=== PATIENT | female | born 1990 | race African-American/Black ===

== ENCOUNTER 2022-04-03 08:32 | Emergency (ER) | payer SELFPAY ==
[2022-04-03] MEDS ORDERED: Ketorolac Tromethamine 30 MG/ML VIAL ONE (09:54)
== END 2022-04-03 10:08 | disposition home or self-care (01) ==
LOC: ERS 08:32
DX: R51.9 Headache, unspecified (principal); F17.210 Nicotine dependence, cigarettes, uncomplicated
CPT/HCPCS: 96372; 99283; J1885

== ENCOUNTER 2023-06-24 11:06 | Emergency (ER) | payer SELFPAY ==
[2023-06-24] MEDS ORDERED: Acetaminophen 500 MG TAB ONE (12:45)
== END 2023-06-24 13:46 | disposition home or self-care (01) ==
LOC: ERS 11:06
DX: J18.9 Pneumonia, unspecified organism (principal); R51.9 Headache, unspecified
CPT/HCPCS: 71045

== ENCOUNTER 2023-08-02 10:05 | Emergency (ER) | payer MEDICAID, SELFPAY ==
[2023-08-02] MEDS ORDERED: Acetaminophen 500 MG TAB ONE (10:23)
[2023-08-02 10:45] LABS: #Monocytes 0.9 thou/uL (0.11-0.59); %Basophils 0.2 % (0.0-1.0); %Lymphocytes 7.3 % (21.0-51.0); %Monocytes 4.7 % (0.0-10.0); %Neutrophils 87.1 % (42.0-75.0); Hemoglobin 11.9 g/dL (12.0-16.0); Mean Corpuscular HGB CONC 31.3 g/dL (32.0-36.0); Mean Corpuscular Hemoglobin 21.2 pg (27.0-31.0); Mean Corpuscular Volume 67.6 fl (78.0-98.0); Mean Platelet Volume 9.6 fL (7.4-10.4); Platelet Count 303 10x3/uL (130-400); Red Blood Cell (RBC) Count 5.62 mill/uL (4.20-5.40); White Blood Cell (WBC) Count 18.3 10x3/uL (4.8-10.8)
[2023-08-02] MEDS ORDERED: Dexamethasone 10 MG/ML VIAL ONE (10:46)
[2023-08-02] MEDS ORDERED: Clindamycin/D5W 900 MG in Premix 1 BAG IVPB SCH (11:00)
[2023-08-02 11:01] LABS: Anion Gap 13 mmol/L (10-20); BUN (Urea Nitrogen) 9 mg/dL (7.0-18.7); CRP (Inflammatory) 9.05 mg/dL (= or < 0.5); Calc. Creatinine Clearance 0 mL/min (70-130); Calcium 9.7 mg/dL (7.8-10.44); Carbon Dioxide 23 mmol/L (22-29); Chloride 105 mmol/L (98-107); Estimated GFR 99; Glucose 117 mg/dL (70-105); Potassium 3.8 mmol/L (3.5-5.1); Sodium 137 mmol/L (136-145)
[2023-08-02 11:03] LABS: BHCG - Serum Negative (NEGATIVE); Pregs Control Background? CLEAR/WHITE (CLR/WHITE); Pregs Control Bar Appear? YES (CONTROL BAR)
[2023-08-02 11:28] LABS: CellaVision Operator ID LAB.NR; Elliptocytes SLIGHT = 2-5 cells HPF (0-1); Hypochromia SLIGHT = 6-15 cells HPF (0-5); Microcytosis MODERATE=15-30 cells HPF (0-5); Platelet Adequacy Comment Platelets Normal; Polychromasia SLIGHT = 2-3 cells HPF (0-2); Target Cells SLIGHT = 2-5 cells HPF (0-1); Vacuoles SLIGHT
[2023-08-02 12:11] LABS: SARS-CoV-2 NAA Rapid Test Not Detected (NotDetected)
[2023-08-02] MEDS ORDERED: Iopamidol-370 76% 500 ML MDV (1 ML CHARGE) ONE (15:57)
== END 2023-08-02 12:45 | disposition home or self-care (01) ==
LOC: ERS 10:05
DX: J39.1 Other abscess of pharynx (principal)
CPT/HCPCS: 36415; 70491; 83605; 84703; 85025; 86140; 96361; 96365; 96375; J1100; J3490; Q9967

== ENCOUNTER 2023-12-13 01:08 | Emergency (ER) | payer OTHER ==
[2023-12-13] MEDS ORDERED: fentaNYL 50 mcg/mL 1 mL Vial ONE ×3 (01:14→04:05)
[2023-12-13 01:35] LABS: Hematocrit 37.6 % (36.0-47.0); Hemoglobin 11.3 g/dL (12.0-16.0); Mean Corpuscular HGB CONC 30.1 g/dL (32.0-36.0); Mean Corpuscular Hemoglobin 20.8 pg (27.0-31.0); Mean Corpuscular Volume 69.1 fL (78.0-98.0); Platelet Count 332 10x3/uL (130-400); RBC Distribution Width 19.4 % (11.5-14.5); Red Blood Cell (RBC) Count 5.44 mill/uL (4.20-5.40)
[2023-12-13 01:47] LABS: ALT (SGPT) 6 U/L (8-55); AST (SGOT) 24 U/L (5-34); Alkaline Phosphatase 81 U/L (40-110); Anion Gap 16 mmol/L (10-20); BUN (Urea Nitrogen) 10 mg/dL (7.0-18.7); Bilirubin, Total 0.2 mg/dL (0.2-1.2); Calc. Creatinine Clearance 0 mL/min (70-130); Calcium 9.5 mg/dL (7.8-10.44); Carbon Dioxide 20 mmol/L (22-29); Chloride 107 mmol/L (98-107); Estimated GFR 89; Globulin 3.9 g/dL (2.4-3.5); Glucose 123 mg/dL (70-105); Lipase 25 U/L (8-78); Potassium 3.5 mmol/L (3.5-5.1); Protein, Total 7.9 g/dL (6.0-8.3); Sodium 139 mmol/L (136-145)
[2023-12-13 02:17] LABS: Anisocytosis SLIGHT = 6-15 cells HPF (0-5); Eosinophils 2 % (0-10); Hypochromia SLIGHT = 6-15 cells HPF (0-5); Lymphocytes 48 % (21-51); Microcytosis SLIGHT = 6-15 cells HPF (0-5); Monocytes 3 % (0-10); Neutrophil 48 % (42-75); Platelet Adequacy Comment Platelets Normal; Smudge Cells 20.2 %
[2023-12-13 02:45] LABS: BHCG - Serum Negative (NEGATIVE); Pregs Control Background? CLEAR/WHITE (CLR/WHITE); Pregs Control Bar Appear? YES (CONTROL BAR)
[2023-12-13] MEDS ORDERED: Boostrix 0.5 ML (Tdap) VIAL (>/=7 yrs of age) ONE (04:05)
[2023-12-13] MEDS ORDERED: Iopamidol-370 76% 500 ML MDV (1 ML CHARGE) ONE (09:00)
== END 2023-12-13 04:55 | disposition home or self-care (01) ==
LOC: ERS 01:08
DX: S31.133A Puncture wound of abdominal wall without foreign body, right lower quadrant without penetration into peritoneal cavity, initial encounter (principal); X95.9XXA Assault by unspecified firearm discharge, initial encounter; Y93.01 Activity, walking, marching and hiking; Y92.481 Parking lot as the place of occurrence of the external cause; Z23 Encounter for immunization
CPT/HCPCS: 36415; 71260; 74177; 80053; 83605; 83690; 84703; 85025; 86850; 86900; 86901; 90471; 90715; 96374; 96376; J3010

== ENCOUNTER 2023-12-21 11:14 | Emergency (ER) | payer OTHER ==
[2023-12-21 12:51] LABS: #Basophils Less than 0.03 10x3/uL (0.0-0.2); %Basophils 0.2 % (0.0-1.0); %Eosinophils 1.2 % (0.0-10.0); %Lymphocytes 29.7 % (21.0-51.0); %Monocytes 5.7 % (0.0-10.0); %Neutrophils 62.8 % (42.0-75.0); Hematocrit 35.9 % (36.0-47.0); Mean Corpuscular HGB CONC 30.6 g/dL (32.0-36.0); Mean Corpuscular Hemoglobin 20.8 pg (27.0-31.0); Mean Corpuscular Volume 67.7 fL (78.0-98.0); Mean Platelet Volume 9.9 fL (7.4-10.4); Platelet Count 361 10x3/uL (130-400); RBC Distribution Width 18.8 % (11.5-14.5)
[2023-12-21] MEDS ORDERED: Iopamidol-370 76% 500 ML MDV (1 ML CHARGE) ONE (13:00)
[2023-12-21 13:05] LABS: ALT (SGPT) 11 U/L (8-55); AST (SGOT) 14 U/L (5-34); Albumin 3.8 g/dL (3.5-5.0); Alkaline Phosphatase 82 U/L (40-110); Anion Gap 10 mmol/L (10-20); BUN (Urea Nitrogen) 12 mg/dL (7.0-18.7); Bilirubin, Total 0.3 mg/dL (0.2-1.2); CRP,High Sensitivity (Inhouse) 0.53 mg/dL (< or = 0.5); Calc. Creatinine Clearance 0 mL/min (70-130); Calcium 9.6 mg/dL (7.8-10.44); Carbon Dioxide 24 mmol/L (22-29); Chloride 110 mmol/L (98-107); Estimated GFR 105; Globulin 3.8 g/dL (2.4-3.5); Glucose 89 mg/dL (70-105); Potassium 3.9 mmol/L (3.5-5.1); Protein, Total 7.6 g/dL (6.0-8.3); Sodium 140 mmol/L (136-145)
[2023-12-21 13:19] LABS: Anisocytosis SLIGHT = 6-15 cells HPF (0-5); Hypochromia SLIGHT = 6-15 cells HPF (0-5); Microcytosis SLIGHT = 6-15 cells HPF (0-5); Ovalocytes SLIGHT = 2-5 cells HPF (0-1); Platelet Adequacy Comment Platelets Normal; Polychromasia SLIGHT = 2-3 cells HPF (0-2)
[2023-12-21 13:42] LABS: BHCG - Serum Negative (NEGATIVE); Pregs Control Background? CLEAR/WHITE (CLR/WHITE); Pregs Control Bar Appear? YES (CONTROL BAR)
== END 2023-12-21 15:49 | disposition home or self-care (01) ==
LOC: ERS 11:14
DX: S31.109D Unspecified open wound of abdominal wall, unspecified quadrant without penetration into peritoneal cavity, subsequent encounter (principal); R10.9 Unspecified abdominal pain; Y24.8XXD Other firearm discharge, undetermined intent, subsequent encounter
CPT/HCPCS: 36415; 74177; 80053; 83605; 84703; 85025; 86141; 87070; 87205; Q9967